=== PATIENT | male | born 1975 | race Caucasian/White ===

== ENCOUNTER 2018-02-01 13:05 | Observation (INO) | payer SELFPAY ==
[2018-02-01] MEDS ORDERED: Sodium Chloride 0.9% 2.5 ML Syringe FLUSH PRN ×2 (13:11→17:19)
[2018-02-01] MEDS ORDERED: Sodium Chloride 0.9% 10 ML Syringe FLUSH PRN ×2 (13:11→17:19)
[2018-02-01] MEDS ORDERED: Aspirin 81 MG Tab.Chew PO ONE (13:11)
--- NOTE | 2018-02-01 13:23 | EDM.PDOC ---
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 Denies any recent illness, shortness of breath, dizziness, sweating or cough. Review of systems: As per history of present illness and below otherwise all systems reviewed and negative. Past medical history: As per history of present illness and as reviewed below otherwise noncontributory. Surgical history: As per history of present illness and as reviewed below otherwise noncontributory. Social history: No reported history of drug or alcohol abuse. Family history: As per history of present illness and as reviewed below otherwise noncontributory. Physical exam: General: Well developed, well nourished in NAD HEENT: Atraumatic, normocephalic, pupils reactive, negative for conjunctival pallor or scleral icterus, mucous membranes moist, throat clear, neck supple, nontender, trachea midline. Lungs: Clear to auscultation, breath sounds equal bilaterally, chest tender to palpation left and right not exactly reproducible Heart: S1S2, regular, negative for clicks, rubs, or JVD. Abdomen: Soft, nondistended, nontender. Negative for masses or hepatosplenomegaly. Negative for costovertebral tenderness. Pelvis: Stable nontender. Genitourinary: Deferred. Rectal: Deferred. Extremities: Atraumatic, negative for cords or calf pain. Neurovascular unremarkable. Neuro: Awake, alert, oriented. Cranial nerves II through XII unremarkable. Cerebellum unremarkable. Motor and sensory unremarkable throughout. Exam nonfocal. Diagnostics: []Chemistry negative CBC negative troponin and negative EKG no acute anemic changes, as x-ray negative Therapeutics: []Aspirin, nitroglycerin with improvement Impression: []Chest pain unknown etiology Plan: []Admit for rule out IN Definitive disposition and diagnosis as appropriate pending reevaluation and review of above. left chest Pain Score (Numeric/FACES): 5 - Related Data Allergies Allergy/AdvReac Type Severity Reaction Status Date / Time No Known Allergies Allergy Verified 02/01/18 13:21 Home Meds: Home Meds Aspirin [Halfprin] 81 mg PO DAILY 02/01/18 [History] ED ROS GENERAL - Review of Systems Review Of Systems: See Below (See history of present illness) ED EXAM, GI/ABD - Physical Exam Exam: See Below (See history of present illness) Course - Vital Signs Last Recorded V/S: Last Vital Signs Temp 97.1 F 02/01/18 16:00 Pulse 58 L 02/01/18 16:00 Resp 16 02/01/18 16:00 BP 114/65 02/01/18 16:00 Pulse Ox 95 02/01/18 16:00 - Orders/Labs/Meds Orders: Active Orders 24 hr Category Date Time Status Patient Status [ADT] Stat ADT 02/01/18 15:00 Active Sodium Chloride 0.9% [Saline Flush] Med 02/01/18 13:11 Active 10 ml FLUSH ASDIRECTED PRN Sodium Chloride 0.9% [Saline Flush] Med 02/01/18 13:11 Active 2.5 ml FLUSH ASDIRECTED PRN Saline Lock Insert [OM.PC] Stat Oth 02/01/18 13:11 Ordered Medication Orders Albuterol/Ipratropium (Duoneb 3.0-0.5 Mg/3 Ml) 3 ml NEB Q4HRRT PRN PRN Reason: Shortness Of Breath/wheezing Aspirin (Halfprin) 81 mg PO DAILY TYLOR Morphine Sulfate (Morphine) 2 mg IVPUSH Q2H PRN PRN Reason: Pain (severe 7-10) Ondansetron HCl (Zofran) 4 mg IVPUSH Q4H PRN PRN Reason: Nausea Senna/Docusate Sodium (Senokot-S) 1 each PO BID PRN PRN Reason: Constipation Sodium Chloride (Saline Flush) 10 ml FLUSH ASDIRECTED PRN PRN Reason: Keep Vein Open Sodium Chloride (Saline Flush) 2.5 ml FLUSH ASDIRECTED PRN PRN Reason: Keep Vein Open Sodium Chloride (Saline Flush) 10 ml FLUSH ASDIRECTED PRN PRN Reason: Keep Vein Open Sodium Chloride (Saline Flush) 2.5 ml FLUSH ASDIRECTED PRN PRN Reason: Keep Vein Open Labs: Laboratory Tests 06/28/18 06/28/18 Range/Units 13:13 13:13 WBC 5.40 (4.0-11.0) K/uL RBC 4.76 (4.50-5.90) M/uL Hgb 15.3 (13.0-17.0) g/dL Hct 41.8 (38.0-50.0) % MCV 87.8 (80.0-98.0) fL MCH 32.1 H (27.0-32.0) pg MCHC 36.6 (31.0-37.0) g/dL RDW Std Deviation 40.0 (28.0-62.0) fl RDW Coeff of Brendon 12 (11.0-15.0) % Plt Count 151 (150-400) K/uL MPV 10.90 (7.40-12.00) fL Neut % (Auto) 46.9 L (48.0-80.0) % Lymph % (Auto) 42.0 H (16.0-40.0) % [place] % (Auto) 9.6 (0.0-15.0) % Eos % (Auto) 1.1 (0.0-7.0) % Baso % (Auto) 0.4 (0.0-1.5) % Neut # (Auto) 2.5 (1.4-5.7) K/uL Lymph # (Auto) 2.3 (0.6-2.4) K/uL [place] # (Auto) 0.5 (0.0-0.8) K/uL Eos # (Auto) 0.1 (0.0-0.7) K/uL Baso # (Auto) 0.0 (0.0-0.1) K/uL Nucleated RBC % 0.0 /100WBC Nucleated RBCs # 0 K/uL Sodium 141 (136-148) mmol/L Potassium 3.8 (3.5-5.1) mmol/L Chloride 105 (98-107) mmol/L Carbon Dioxide 25.9 (21.0-32.0) mmol/L BUN 11 (7.0-18.0) mg/dL Creatinine 1.0 (0.8-1.3) mg/dL Est Cr Clr Drug Dosing 118.49 mL/min Estimated GFR (MDRD) > 60.0 ml/min Glucose 117 H (74-106) mg/dL Calcium 8.7 (8.5-10.1) mg/dL Total Bilirubin 0.8 (0.2-1.0) mg/dL AST 18 (15-37) IU/L ALT 35 (14-63) IU/L Alkaline Phosphatase 64 (46-116) U/L Troponin I < 0.050 (0.000-0.056) ng/mL Total Protein 6.9 (6.4-8.2) g/dL Albumin 4.1 (3.4-5.0) g/dL Globulin 2.8 (2.0-3.5) g/dL Albumin/Globulin Ratio 1.5 (1.3-2.8) Meds: Medications Generic Name Dose Route Start Last Admin Trade Name Freq PRN Reason Stop Dose Admin Albuterol/Ipratropium 3 ml 02/01/18 17:19 Duoneb 3.0-0.5 Mg/3 Ml NEB Q4HRRT PRN Shortness Of Breath/wheezing Aspirin 81 mg 02/02/18 09:00 Halfprin PO DAILY TYLOR Morphine Sulfate 2 mg 02/01/18 17:19 Morphine IVPUSH Q2H PRN Pain (severe 7-10) Ondansetron HCl 4 mg 02/01/18 17:19 Zofran IVPUSH Q4H PRN Nausea Senna/Docusate Sodium 1 each 02/01/18 17:19 Senokot-S PO BID PRN Constipation Sodium Chloride 10 ml 02/01/18 13:11 Saline Flush FLUSH ASDIRECTED PRN Keep Vein Open Sodium Chloride 2.5 ml 02/01/18 13:11 Saline Flush FLUSH ASDIRECTED PRN Keep Vein Open Sodium Chloride 10 ml 02/01/18 17:19 Saline Flush FLUSH ASDIRECTED PRN Keep Vein Open Sodium Chloride 2.5 ml 02/01/18 17:19 Saline Flush FLUSH ASDIRECTED PRN Keep Vein Open Discontinued Medications Generic Name Dose Route Start Last Admin Trade Name Freq PRN Reason Stop Dose Admin Aspirin 324 mg 02/01/18 13:11 02/01/18 13:42 Aspirin PO 02/01/18 13:12 324 mg ONETIME ONE Administration Nitroglycerin 0.4 mg 02/01/18 13:11 02/01/18 13:55 Nitrostat SL 0.4 mg Q5M PRN Administration Chest Pain Departure - Departure Time of Disposition: 15:35 Disposition: Refer to Observation Condition: Good Clinical Impression: Chest pain Qualifiers: Chest pain type: unspecified Qualified Code(s): R07.9 - Chest pain, unspecified - Discharge Information - My Orders Last 24 Hours: My Active Orders 02/01/18 13:11 Sodium Chloride 0.9% [Saline Flush] 10 ml FLUSH ASDIRECTED PRN Sodium Chloride 0.9% [Saline Flush] 2.5 ml FLUSH ASDIRECTED PRN Saline Lock Insert [OM.PC] Stat 02/01/18 15:00 Patient Status [ADT] Stat - Assessment/Plan Last 24 Hours: My Active Orders 02/01/18 13:11 Sodium Chloride 0.9% [Saline Flush] 10 ml FLUSH ASDIRECTED PRN Sodium Chloride 0.9% [Saline Flush] 2.5 ml FLUSH ASDIRECTED PRN Saline Lock Insert [OM.PC] Stat 02/01/18 15:00 Patient Status [ADT] Stat
[2018-02-01] MEDS: Nitroglycerin 0.4 MG Tab.SL SL PRN ×3 (13:43→13:55)
[2018-02-01 13:53] LABS: CHLORIDE,CL 105 mmol/L (98-107); SODIUM,NA 141 mmol/L (136-148)
--- NOTE | 2018-02-01 14:13 | CR ---
EXAMINATION: Portable chest radiograph. HISTORY: Shortness of breath. FINDINGS: The trachea is midline. The cardiomediastinal silhouette is within normal limits. No pulmonary infilt rates, effusions or pneumothorax. Osseous structures appear unremarkable. IMPRESSION: No acute cardiopulmonary process.
[2018-02-01] MEDS ORDERED: Docusate Sodium/Sennosides Tab PO PRN (17:19)
[2018-02-01] MEDS ORDERED: Albuterol/Ipratropium 3.0-0.5 MG/3 ML Neb Soln NEB PRN (17:19)
[2018-02-01] MEDS ORDERED: Morphine 2 MG/ML Syringe IVPUSH PRN (17:19)
[2018-02-01] MEDS ORDERED: Ondansetron 4 MG/2 ML SDV IVPUSH PRN (17:19)
--- NOTE | 2018-02-01 22:51 | PCM.SN ---
- Free Text/Narrative Note: H michael p dictated. [id number]
--- NOTE | 2018-02-02 01:14 | HP ---
DATE OF : 1975 PRIMARY CARE PHYSICIAN: Erika Pedersen PCP CHIEF CONCERN: Chest pain radiating into the left arm and also tingling and numbness into the left arm. 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 The pain lasted for about 10 to 15 minutes before he came to ER, and subsided in the ER with the pain medication, aspirin, and nitroglycerin he received in the ER. His pain was associated with numbness and tingling in the thumb ,index and middle finger. His chest pain was worse with deep breath, and there was tenderness to palpation on the chest during the time of pain. 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 The patient never had chest pain before. Currently, the patient is pain free. PAST MEDICAL HISTORY: Hyperlipidemia and diabetes mellitus, diet controlled. ALLERGIES: The patient does not have any known drug allergies. PAST SURGICAL HISTORY: 1. Tonsillectomy. 2. Scar tissue removal from his right foot. SOCIAL HISTORY: Smokes 1-1/2 pack a day for the past 20 years. Alcohol use, rarely. Drug use, none. FAMILY HISTORY: His mom is overweight and used to have diabetes mellitus and she controlled it with diet and exercise. His father is healthy. He had two grandfathers, who had heart attack before the age of 55, and has a sister with a heart murmur and with [id number] syndrome. VITAL SIGNS: At admission, his temperature was 97 Fahrenheit, his heart rate was 73, blood pressure 133/79, and oxygen saturation 94%, respiratory rate 18. PHYSICAL EXAMINATION: HEENT: Head is atraumatic, normocephalic. Pupils equally reactive to light. NECK: Supple. No thyromegaly. No lymphadenopathy. LUNGS: Clear to auscultation bilaterally. HEART: S1, S2. Regular rhythm and rate. No murmurs. ABDOMEN: Soft, nontender, positive bowel sounds. No masses. EXTREMITIES: No edema. MUSCULOSKELETAL: There is mild tenderness to palpation on the left. Chest. No tenderness to palpation on the arm. The patient has full range of motion without pain of the left arm. LABORATORY DATA: At admission WBC 5.4, hemoglobin 15.3, hematocrit 14.8, and platelet count 151. Chemistry: Sodium 141, potassium 2.8, chloride 105, CO2 of 25.9, BUN 11, creatinine 1. Creatinine clearance 118.49. Glucose 117, calcium 8.7, total bilirubin 0.8, AST 18, and ALT 35, alkaline phosphatase 64. Troponin less than 0.05. Total protein 6.9, albumin 4.1, globulin 2.8. EKG done in the emergency room showed sinus rhythm at the rate of 73, no ST-T changes. Normal EKG. ASSESSMENT AND PLAN: 1. Chest pain. Rule out acute coronary syndrome. We will admit patient to telemetry. We will follow up three sets of cardiac enzymes. Patient received aspirin 325 mg po one dose in ER. We will follow up hemoglobin A1c and a lipid profile in the morning. His chest pain seems to atypical probably due to intense physical exercise, consider follow up as outpatient with Cardiology post discharge. 2. Diabetes mellitus. We will continue patient with a diabetic diet. We will follow up blood culture in a.m., and we will follow up hemoglobin A1c. 3. Deep vein thrombosis prophylaxis. None necessary as patient is ambulatory. 4. Tobacco abuse. The patient was counseled for more than 5 minutes to stop smoking. ANTOPET / MODL /[id number] Discharge summary: Patient had 3 sets of cardiac enzymes negative , he dis not have any other episodes of chest pain. Lipid profile normal , Hb A1c 6. Patient says he wants to establish PCP in [place] . No events on gambling monitor. He was cleared for discharge today to f/up with PCP. Patient was adviced to stop smoking. Patient was in hospital for less than 24 h. HERMINIO
[2018-02-02] MEDS ORDERED: Aspirin 81 MG Tab.EC PO SCH (09:00)
== END 2018-02-02 12:30 | disposition home or self-care (01) ==
LOC: MW.ED 13:05 → MW.MS 15:43 → EDBD 15:43
PROVIDERS: ADMIT Internal Medicine; ATTEND Internal Medicine
DX: R07.9 Chest pain, unspecified (principal); E11.9 Type 2 diabetes mellitus without complications; E78.5 Hyperlipidemia, unspecified; F17.210 Nicotine dependence, cigarettes, uncomplicated; Z79.82 Long term (current) use of aspirin
CPT/HCPCS: 36415; 71045; 80053; 80061; 83036; 84484; 85025; 99285; A9270